=== PATIENT | male | born 1950 | race African-American/Black ===

== ENCOUNTER 2019-10-14 08:35 | Inpatient (IN) | payer MEDICARE, MEDICAID ==
[~2019-10-14] VITALS: Ht 170.2 cm; Wt 68.0 kg
[2019-10-14] VITALS (14 sets, daily range): BP systolic 105–156; BP diastolic 60–94
[~2019-10-14 08:35] MED LIST: ceFAZolin sod 1 GM in NS 55 ML IVPB ONE
[2019-10-14] MEDS ORDERED: AMLODIPINE BESY10 MG ORAL (09:44)
[2019-10-14] MEDS ORDERED: LISINOPRIL40 MG ORAL (09:44)
[2019-10-14] MEDS ORDERED: FLOMAX0.4 MG ORAL (09:44)
--- NOTE | 2019-10-14 12:12 | Pre-Procedure Note/Attestation ---
Pre-Procedure Note/Attestation Complete Prior to Procedure Planned Procedure: not applicable Procedure Narrative: open retropubic prostatectomy Indications for Procedure Pre-Operative Diagnosis: retention Attestation I attest that I discussed the nature of the procedure; its benefits; risks and complications; and alternatives (and the risks and benefits of such alternatives ), prior to the procedure, with the patient (or the patient's legal patient accounting representative). I attest that, if there was a reasonable possibility of needing a blood transfusion, the patient (or the patient's legal patient accounting representative) was given the [facility] standardized written summary, pursuant to the Bob Rosalee Blood Safety Act ([place] Health and Safety Code # 1645, as amended). I attest that I re-evaluated the patient just prior to the surgery and that there has been no change in the patient's H&P, except as documented below: Thong Baig MD October 14, 2019 12:12
--- NOTE | 2019-10-14 12:27 | Diagnostic Imaging Report ---
Indication: Cough Technique: One view of the chest Comparison: None Findings: Faint reticular opacities are seen at the right lung base. The pleural spaces are clear. No dense consolidation. Heart size is normal. Impression: Faint right basilar reticular opacities. These are nonspecific, could indicate chronic fibrotic changes versus early infiltrate. Correlate with clinical findings
[2019-10-14] MEDS ORDERED: Rocuronium Bromide 50mg/5ml Inj IV ONE (12:30)
[2019-10-14] MEDS ORDERED: ProvayBlue 5mg/ml 10ml amp INJ ONE (12:30)
[2019-10-14] MEDS ORDERED: LR 1000ml ONE (12:30)
[2019-10-14] MEDS ORDERED: NS Irrig 1000ml ONE (12:30)
[2019-10-14] MEDS ORDERED: Sterile Water Irrig 1000ml IRRIG ONE (12:30)
[2019-10-14] MEDS ORDERED: Sodium Chloride 10ml vial INJ ONE (12:45)
[2019-10-14] MEDS ORDERED: Lidocaine 1% MPF 10mg/ml 5ml ONE (12:45)
[2019-10-14] MEDS ORDERED: Dexamethasone 4mg/ml vial ONE (12:45)
[2019-10-14] MEDS ORDERED: Propofol 200mg/20ml IV ONE (12:45)
[2019-10-14] MEDS ORDERED: fentaNYL 100 mcg/2 mL IV ONE (12:47)
[2019-10-14] MEDS ORDERED: Metoclopramide 10mg/2ml Inj IVP PRN (13:00)
[2019-10-14] MEDS ORDERED: LORazepam Inj 2mg/ml 1ml IV PRN (13:00)
[2019-10-14] MEDS ORDERED: Midazolam 2mg/2ml Inj IVP PRN (13:00)
[2019-10-14] MEDS ORDERED: HYDROcodone/Acetamin 7.5/325 tab ORAL PRN (13:00)
[2019-10-14] MEDS ORDERED: Meperidine 25mg/0.5ml Inj (FOR RIGORS ONLY) IV PRN (13:00)
[2019-10-14] MEDS ORDERED: LR 1000ml 1,000 ML IVLG SCH (13:00)
[2019-10-14] MEDS ORDERED: DiphenhydrAMINE 50mg/ml Inj IVP PRN (13:00)
[2019-10-14] MEDS ORDERED: Atropine Sulfate 0.4mg/ml inj IVP PRN (13:00)
[2019-10-14] MEDS ORDERED: fentaNYL 100 mcg/2 mL IV PRN (13:00)
[2019-10-14] MEDS ORDERED: Acetaminophen (Non formulary) 100 ML IV ONE (13:00)
[2019-10-14] MEDS ORDERED: Ketorolac 30mg Inj IV PRN ×3 (13:00)
[2019-10-14] MEDS ORDERED: Labetalol 5mg/ml 20ml vial IV PRN (13:00)
[2019-10-14] MEDS ORDERED: oxyCODONE HCL/Acetaminophen 5/325mg ORAL PRN (13:00)
[2019-10-14] MEDS ORDERED: HYDROcodone/Acetamin 5/325 tab ORAL PRN (13:00)
[2019-10-14] MEDS ORDERED: Hydromorphone 0.5mg/0.5ml inj IVP PRN (13:00)
--- NOTE | 2019-10-14 13:03 | Brief Operative Note ---
Immediate Post Operative Note Operative Note Pre-op Diagnosis: retention Procedure: open radical prostatectomy Post-op Diagnosis: same Surgeon: Yo Baig Set Up And Charger: Edi Byrnes Anesthesia: general Specimen: yes Complications: none Condition: stable Fluids: 1000 Estimated Blood Loss: minimal Drains: CAM Implant(s) used?: No Thong Baig MD October 14, 2019 13:03
--- NOTE | 2019-10-14 13:04 | Anethesia Preoperative Eval ---
Anesthesia Pre-op PMH/ROS General Date of Evaluation: October 14, 2019 Time of Evaluation: 12:37 Anesthesiologist: Chance ASA Score: ASA 3 Mallampati Score Class I : Soft palate, uvula, fauces, pillars visible Class II: Soft palate, uvula, fauces visible Class III: Soft palate, base of uvula visible Class IV: Only hard plate visible Mallampati Classification: Class II Surgeon: Jovanni Diagnosis: Prostate CA Surgical Procedure: Prostatectomy Anesthesia History: none Family History: no anesthesia problems Allergies: Coded Allergies: No Known Allergies (Unverified , 10/14/19) Medications: see eMAR Patient NPO?: Yes NPO Date: October 13, 2019 NPO Time: 2200 Past Medical History Cardiovascular: Reports: HTN Gastrointestinal/Genitourinary: Reports: other - BPH, Prostate CA Neurologic/Psychiatric: Reports: depression/anxiety Anesthesia Pre-op Phys. Exam Physician Exam Last Vital Signs Date Time Temp Pulse Resp B/P (MAP) Pulse Ox O2 Delivery O2 Flow Rate FiO2 10/14/19 09:48 Room Air 10/14/19 09:39 97.5 80 18 150/92 (111) 99 Constitutional: NAD Neurologic: CN 2-12 intact Cardiovascular: RRR Respiratory: CTA Gastrointestinal: S/NT/ND Airway Exam Mallampati Score: Class II MO: full ROM: full Teeth: missing, intact Anesthesia Pre-op A/P Risk Assessment & Plan Assessment: ASA 3 Plan: GA, SED, GlideScope Status Change Before Surgery: No Pre-Antibiotics Dru mg Vancomycin, 80 mg Getamicin IV Given Within 1 Hr of Incision: Yes Time Given: 13:06 Arden Fletcher MD October 14, 2019 13:04
--- NOTE | 2019-10-14 13:23 | Immediate Post-Op Evaluation ---
Immediate Post-Op Evalulation Immediate Post-Op Evalulation Procedure: Open Prostaectomy Date of Evaluation: October 14, 2019 Time of Evaluation: 15:17 IV Fluids: 1000 LR Blood Products: 0 Estimated Blood Loss: 50 Urinary Output: 200 Blood Pressure Systolic: 156 Blood Pressure Diastolic: 94 Pulse Rate: 69 Respiratory Rate: 18 O2 Sat by Pulse Oximetry: 98 Temperature (Fahrenheit): 97 Pain Score (1-10): 2 Nausea: No Vomiting: No Complications 0 Patient Status: awake, reacts, patent, extubated, none Hydration Status: adequate Dru mg Vancomycin, 80 mg Getamicin IV Given Within 1 Hr of Incision: Yes Time Given: 13:06 Arden Fletcher MD October 14, 2019 13:22
[2019-10-14] MEDS ORDERED: Glycopyrrolate 0.2mg/ml 1ml Vial ONE (13:56)
[2019-10-14] MEDS ORDERED: Neostigmine 1mg/ml 10ml Inj ONE (13:56)
[2019-10-14] MEDS ORDERED: Ketorolac 30mg Inj ONE (14:52)
[2019-10-14 16:26] LABS: BASOPHILS % (AUTO) 0.5 % (0.0-2.0); EOSINOPHILS % (AUTO) 0.2 % (0.0-3.0); HEMATOCRIT 42.9 % (42.0-52.0); HEMOGLOBIN 12.9 G/DL (14.2-18.0); LYMPHOCYTES % (AUTO) 4.7 % (20.0-45.0); MEAN CORPUSCULAR VOLUME 92 FL (80-99); MONOCYTES % (AUTO) 1.1 % (1.0-10.0); NEUTROPHILS % (AUTO) 93.4 % (45.0-75.0); PLATELET COUNT 200 K/UL (150-450); RED BLOOD COUNT 4.65 M/UL (4.70-6.10); RED CELL DISTRIBUTION WIDTH 13.8 % (11.6-14.8); WHITE BLOOD COUNT 17.4 K/UL (4.8-10.8)
[2019-10-14 16:38] LABS: ANION GAP 11 mmol/L (5-15); BLOOD UREA NITROGEN 17 mg/dL (7-18); CALCIUM 8.7 MG/DL (8.5-10.1); CARBON DIOXIDE 24 MMOL/L (21-32); CHLORIDE 109 MMOL/L (98-107); CREATININE 1.1 MG/DL (0.55-1.30); SODIUM 144 MMOL/L (136-145)
[2019-10-14] MEDS: Docusate 100mg cap ORAL SCH (17:50)
[2019-10-14] MEDS: D5 1/2NS w/KCl 20mEq 1,000 ML IV SCH (18:00)
--- NOTE | 2019-10-14 19:30 | NUR ---
NURSE NOTES: Receive a report from LESLI Ibarra. Round is done. Pt is awake and alert. No acute distress noted but still noted pain. Pain medication will be provided as ordered. Surgical site dressing kept dry and clean. Spaulding is inserted state and is natural drained with dark urine with blood clots. CAM drainage is SS. On NPO except ice chips and po medication. On IV hydration. Call light within reach. Will continue to monitor.
--- NOTE | 2019-10-14 20:30 | NUR ---
NURSE NOTES: Explain for post-op education. Encourage for deep breathing and cough, I/S while awake including ROM L/E. On SCDs bilateral. Pt verbalizes understanding. Will continue to monitor.
[2019-10-14] MEDS ORDERED: ceFAZolin sod 2 GM in D5W 110 ML IV SCH (21:00)
[2019-10-14] MEDS: ceFAZolin 2gm/D5W 50ml Premix IV SCH (21:08)
[2019-10-15] VITALS: BP 135/82
[2019-10-15] MEDS: HYDROcodone/Acetamin 5/325 tab ORAL PRN ×2 (03:17→08:40)
[2019-10-15 04:00] VITALS: BP 121/72
[2019-10-15] MEDS: ceFAZolin 2gm/D5W 50ml Premix IV SCH (05:15)
[2019-10-15] MEDS: D5 1/2NS w/KCl 20mEq 1,000 ML IV SCH ×2 (05:15→17:01)
--- NOTE | 2019-10-15 06:00 | NUR ---
NURSE NOTES: Pt did not sleep overnight by his medical condition for many years. Inform pt of getting sleeping pill tonight if necessary. Pt shows appreciation for information he gets. Pain is tolerating 5/10 with pain medication. On NPO with hypo bowel sound. Will continue to monitor. Output Urine: [id number] (every 4 hrs): 420ml CAM: 80ml-SS
[2019-10-15 07:14] LABS: HEMATOCRIT 38.4 % (42.0-52.0); HEMOGLOBIN 12.9 G/DL (14.2-18.0); MEAN CORPUSCULAR VOLUME 86 FL (80-99); PLATELET COUNT 204 K/UL (150-450); RED BLOOD COUNT 4.47 M/UL (4.70-6.10); RED CELL DISTRIBUTION WIDTH 12.6 % (11.6-14.8); WHITE BLOOD COUNT 19.2 K/UL (4.8-10.8)
[2019-10-15 07:17] LABS: ANION GAP 8 mmol/L (5-15); BLOOD UREA NITROGEN 23 mg/dL (7-18); CALCIUM 9.1 MG/DL (8.5-10.1); CARBON DIOXIDE 25 MMOL/L (21-32); CHLORIDE 107 MMOL/L (98-107); CREATININE 1.3 MG/DL (0.55-1.30); POTASSIUM 4.7 MMOL/L (3.5-5.1); SODIUM 140 MMOL/L (136-145)
--- NOTE | 2019-10-15 07:45 | NUR ---
NURSE NOTES: Receive a report from LESLI Childs. Pt is awake and alert, able to needs known. No acute distress noted. Pt c/o pain. Pain medication will be provided as ordered. Surgical site dressing kept dry and clean. Spaulding intact draining dark urine with little blood clots. CAM drainage intact. Call light within reach. Will continue to monitor
[2019-10-15 08:00] VITALS: BP 122/73
--- NOTE | 2019-10-15 08:00 | NUR ---
HAND-OFF: Report given to LESLI Robbins. Round is done.
[2019-10-15] MEDS: Docusate 100mg cap ORAL SCH ×2 (08:39→18:34)
--- NOTE | 2019-10-15 10:08 | NUR ---
*-* INSURANCE *-* ALL AVAILABLE CLINICALS HAVE BEEN FAXED TO: ANABEL GRACIA:Marjorie F: [phone] Work Fax P: [phone] Work F: [phone]....REVIEW/CLINICAL
[2019-10-15 12:00] VITALS: BP 139/91
--- NOTE | 2019-10-15 13:20 | 48 Hour Post Anesthesia Eval ---
Post Anesthesia Evaluation Procedure: Open Prostatectomy Date of Evaluation: October 15, 2019 Time of Evaluation: 13:19 Blood Pressure Systolic: 138 0: 76 Pulse Rate: 68 Respiratory Rate: 20 Temperature (Fahrenheit): 97.6 O2 Sat by Pulse Oximetry: 98 Airway: patent Nausea: No Vomiting: No Pain Intensity: 2 Hydration Status: adequate Cardiopulmonary Status: stable Mental Status/LOC: patient returned to baseline Follow-up Care/Observations: n/a Post-Anesthesia Complications: none Follow-up care needed: N/A Aniceto Mann MD October 15, 2019 13:20
[2019-10-15 16:00] VITALS: BP 147/89
--- NOTE | 2019-10-15 16:34 | NUR ---
P.T Note: P.T evaluation completed and tx initiated. Please refer to P.T evaluation for full report.
--- NOTE | 2019-10-15 17:44 | Consultation ---
DATE OF CONSULTATION: 10/15/2019 INTERNAL MEDICINE CONSULTATION CONSULTING PHYSICIAN: Peter Pedro MD. HISTORY OF PRESENT ILLNESS: This is a 69-year-old male who is postop day #1 after urologic surgery. Patient's surgery was uncomplicated and is seen on the medical unit. He has a history of prostate carcinoma and he underwent open radical prostatectomy by Dr. Thong Baig . The estimated blood loss was minimal and a 1000 mL of fluid was used. PAST MEDICAL HISTORY: Notable for hypertension, prostate CA. HOME MEDICATIONS: Include ferrous sulfate, lisinopril, amlodipine, Flomax. ALLERGIES: None reported. PREVIOUS SURGERIES: None reported. REVIEW OF SYSTEMS: Denies any headaches, hematemesis, melena, hematochezia, night sweats, or weight loss. PHYSICAL EXAMINATION: GENERAL: Reveals a 69-year-old male. HEENT: Unremarkable. LUNGS: Clear breath sounds bilaterally. ABDOMEN: Soft. NEUROLOGIC: Nonfocal. LABORATORY TESTING: At this time is reviewed. Preoperative laboratories were unremarkable. Postoperatively, patient has a white count 9000, hemoglobin 12.9. Chemistries are normal. IMPRESSION: 1. Postop day #1 status post open prostatectomy. 2. Hypertension. DISCUSSION: Patient's vital signs were reviewed. Currently, blood pressure is 120/70. I will resume his home medications. Continue Spaulding. Advance diet as tolerated. We will follow carefully. Peter Pedro M.D. DR: PRANAY JOB#: [id number] CC:
--- NOTE | 2019-10-15 19:26 | NUR ---
NURSE NOTES: Received report from Brant BALLESTEROS. Rounding is done. Patient is a/ox4, and able to known his needs. Denied pain or any distress at this time. Iv site is intact and iv fluid is running. Spaulding is draining to gravity. Herminio is in place and draining. Dressing on Lt lower Q is c/d/i. Bed is on alarm, locked, lowest position. Call light within reach. Will continue to monitor.
[2019-10-15 20:00] VITALS: BP 133/85
[2019-10-16] VITALS: BP 141/80
[2019-10-16 04:00] VITALS: BP 155/92
[2019-10-16] MEDS: D5 1/2NS w/KCl 20mEq 1,000 ML IV SCH ×3 (04:54→10:00)
[2019-10-16 06:40] LABS: BASOPHILS % (AUTO) 0.8 % (0.0-2.0); EOSINOPHILS % (AUTO) 0.7 % (0.0-3.0); HEMATOCRIT 35.3 % (42.0-52.0); HEMOGLOBIN 11.8 G/DL (14.2-18.0); LYMPHOCYTES % (AUTO) 12.7 % (20.0-45.0); MEAN CORPUSCULAR VOLUME 85 FL (80-99); MONOCYTES % (AUTO) 8.6 % (1.0-10.0); NEUTROPHILS % (AUTO) 77.1 % (45.0-75.0); PLATELET COUNT 173 K/UL (150-450); RED BLOOD COUNT 4.13 M/UL (4.70-6.10); RED CELL DISTRIBUTION WIDTH 12.3 % (11.6-14.8); WHITE BLOOD COUNT 10.1 K/UL (4.8-10.8)
--- NOTE | 2019-10-16 07:26 | NUR ---
NURSE NOTES: Report received from Rashad BALLESTEROS, rounds made. Patient resting in semi-fowlers position in bed, AOx4, calm. No distress on RA. Denies NV, pain, SOB. IVF (D5 1/2 NS +20 KCL at 100 ml/hr) to left hand, site asymptomatic. Abdomen dressing CDI. CAM (left), with serosanguineous output noted to bulb. Bilateral SCDs off, encouraged IS and ankle rotation. Tolerating clear liquid diet. Call light in reach, bed in lowest position, will continue to monitor.
--- NOTE | 2019-10-16 07:30 | NUR ---
HAND-OFF: Report given to Geraldine BALLESTEROS. Patient in stable condition.
[2019-10-16 07:58] LABS: ANION GAP 9 mmol/L (5-15); BLOOD UREA NITROGEN 13 mg/dL (7-18); CALCIUM 9.4 MG/DL (8.5-10.1); CARBON DIOXIDE 26 MMOL/L (21-32); CHLORIDE 107 MMOL/L (98-107); CREATININE 1.1 MG/DL (0.55-1.30); POTASSIUM 4.2 MMOL/L (3.5-5.1); SODIUM 142 MMOL/L (136-145)
[2019-10-16 08:00] VITALS: BP 151/98
[2019-10-16] MEDS: Docusate 100mg cap ORAL SCH (08:52)
--- NOTE | 2019-10-16 10:22 | Pulmonology Progress Note ---
Subjective Interval Events: POD #2; doing well Constitutional: Reports: no symptoms HEENT: Repors: no symptoms Respiratory: Reports: no symptoms Cardiovascular: Reports: no symptoms Gastrointestinal/Abdominal: Reports: no symptoms Genitourinary: Reports: no symptoms Allergies: Coded Allergies: No Known Allergies (Unverified , 10/14/19) Objective Last 24 Hour Vital Signs Date Time Temp Pulse Resp B/P (MAP) Pulse Ox O2 Delivery O2 Flow Rate FiO2 10/16/19 08:00 98.7 102 18 151/98 (115) 95 10/16/19 04:00 99.5 98 18 155/92 (113) 94 10/16/19 00:00 99.1 92 17 141/80 (100) 95 10/15/19 21:00 Room Air 10/15/19 20:00 98.8 90 18 133/85 (101) 95 10/15/19 17:32 98.6 10/15/19 16:00 98.6 89 18 147/89 (108) 95 10/15/19 13:20 68 20 98 10/15/19 12:00 98.2 98 18 139/91 (107) 94 Intake and Output 10/15/19 10/16/19 19:02 07:02 Intake Total 600 ml Output Total 680 ml 2530 ml Balance -680 ml -1930 ml IV Total 600 ml Output Urine Total 600 ml 2500 ml Drainage Total 80 ml 30 ml General Appearance: no acute distress HEENT: normocephalic Respiratory/Chest: chest wall non-tender, lungs clear Cardiovascular: normal peripheral pulses, normal rate Abdomen: normal bowel sounds Microbiology Date/Time Source Procedure Growth Status 10/14/19 09:30 Nasal Nares MRSA Culture - Final NO METHICILLIN RESISTANT STAPH AUREUS... Complete Laboratory Tests 10/16/19 05:25: White Blood Count 10.1, Red Blood Count 4.13L, Hemoglobin 11.8L, Hematocrit 35.3L, Mean Corpuscular Volume 85, Mean Corpuscular Hemoglobin 28.5, Mean Corpuscular Hemoglobin Concent 33.3, Red Cell Distribution Width 12.3, Platelet Count 173, Mean Platelet Volume 7.3, Neutrophils (%) (Auto) 77.1H, Lymphocytes ( %) (Auto) 12.7L, Monocytes (%) (Auto) 8.6, Eosinophils (%) (Auto) 0.7, Basophils (%) (Auto) 0.8, Sodium Level 142, Potassium Level 4.2, Chloride Level 107, Carbon Dioxide Level 26, Anion Gap 9, Blood Urea Nitrogen 13, Creatinine 1.1, Estimat Glomerular Filtration Rate > 60, Glucose Level 112H, Calcium Level 9.4 Current Medications Medications (Trade) Dose Ordered Sig/Braulio Route PRN Reason Start Time Stop Time Status Last Admin Dose Admin Acetaminophen (Tylenol) 650 mg Q4H PRN ORAL FEVER 10/14/19 13:00 11/13/19 12:59 Acetaminophen (Tylenol) 650 mg Q6H PRN ORAL Mild Pain (Pain Scale 1-3) 10/14/19 13:00 11/13/19 12:59 Acetaminophen/ Hydrocodone Bitart ([place] 5/325) 1 tab Q4H PRN ORAL Moderate Pain (Pain Scale 4-6) 10/14/19 13:00 10/21/19 12:59 10/15/19 08:40 Al Hydroxide/Mg Hydroxide (Mylanta) 15 ml Q6H PRN ORAL DYSPEPSIA 10/14/19 13:00 11/13/19 12:59 Dextrose/ Electrolytes 1,000 ml @ 100 mls/hr Q10H IV 10/14/19 18:00 11/13/19 17:59 10/16/19 04:54 Docusate Sodium (Colace) 100 mg TWICE A DAY ORAL 10/14/19 18:00 11/13/19 17:59 10/16/19 08:52 Hydromorphone HCl (Dilaudid) 2 mg Q3H PRN IVP pain score 7-10 10/14/19 13:00 10/21/19 12:59 10/16/19 08:52 Ketorolac Tromethamine (Toradol 30mg) 15 mg Q6H PRN IV breakthrough pain 10/14/19 13:00 10/19/19 12:59 10/14/19 20:36 Ondansetron HCl (Zofran) 4 mg Q6H PRN IVP Nausea & Vomiting 10/14/19 13:00 11/13/19 12:59 Temazepam (RestoriL) 7.5 mg DAILYPRN PRN ORAL Insomnia 10/14/19 13:00 10/21/19 12:59 10/15/19 22:10 Assessment/Plan Assessment/Plan IMPRESSION: 1. Postop day #2 status post open prostatectomy. 2. Hypertension. DISCUSSION: Patient's vital signs were reviewed. Currently, blood pressure is 110/70. I will resume his home medications. Continue Spaulding. Advance diet as tolerated. Attach leg bag Dc CAM DC home Jacqui Wood Omar Syed MD October 16, 2019 10:22
[2019-10-16] MEDS ORDERED: FLOMAX0.4 MG ORAL (10:27)
[2019-10-16] MEDS ORDERED: LISINOPRIL40 MG ORAL (10:27)
[2019-10-16] MEDS ORDERED: LEVAQUIN500 MG ORAL (10:27)
[2019-10-16] MEDS ORDERED: NORCO 5-325 TA1 EAC1 ORAL (10:27)
[2019-10-16] MEDS ORDERED: COLACE100 MG ORAL (10:27)
[2019-10-16 12:00] VITALS: BP 135/72
--- NOTE | 2019-10-16 12:04 | NUR ---
DISCHARGE PLANNED: PATIENT PREVIOUSLY IN SERVICE WITH [facility] FAXED TO F: [phone] T: [phone]~~~ SPOKE TO CORINE TO CONFIRM PATIENT SAFE TO DISCHARGE HOME
--- NOTE | 2019-10-16 14:08 | Consultation ---
History of Present Illness General Date patient seen: October 16, 2019 Present Illness HPI This is a 69-year-old male who is status post open radical prostatectomy for prostate carcinoma that was admitted postoperatively for evaluation care and management. In postop patient was recovering but did have significant leukocytosis, abnormal labs, mild nominal distention. Surgery was called to evaluate and assist with care. Patient seen, patient evaluated, chart reviewed. : Plan for discharge today. Ensure patient safety prior to discharge. Patient states he is well. States that yesterday he had a significant back pain some difficulty walking but this morning was able to do a little bit better. States he feels comfortable and ready to go home. Labs improving. Allergies: Coded Allergies: No Known Allergies (Unverified , 10/14/19) COVID-19 Screening Contact w/high risk pt: No Recent Travel to affected area: No Experienced COVID-19 symptoms?: No Medication History Scheduled Docusate Sodium* (Colace*), 100 MG ORAL TWICE A DAY Levofloxacin* (Levaquin*), 500 MG ORAL DAILY Lisinopril* (Lisinopril*), 40 MG ORAL DAILY Tamsulosin HCl (Flomax), 0.4 MG ORAL DAILY Scheduled PRN Hydrocodone Bit/Acetaminophen 5-325* (Andrew 5-325 Tablet*), 1 TAB ORAL Q4H PRN Discontinued Medications Amlodipine Besylate* (Amlodipine Besylate*), 10 MG ORAL DAILY, (Reported) Discontinued Reason: MD discontinued med Patient History History Provided By: Patient, Medical Record, PMD Healthcare decision maker Resuscitation status Advanced Directive on File Past Medical/Surgical History Past Medical/Surgical History: (1) Prostate CA Review of Systems Review of Symptoms General ROS: no weight loss or fever Psychological ROS: no depression or mood changes, no memory loss Ophthalmic ROS: no visual changes or eye irritation ENT ROS: no nasal congestion, hearing loss, dizziness Allergy and Immunology ROS: no allergic symptoms or urticaria Hematological and Lymphatic ROS: no swollen glands, unusual bleeding or bruising Endocrine ROS: no polyuria, polydipsia, weight changes, temperature intolerance Respiratory ROS: no cough, shortness of breath, or wheezing Cardiovascular ROS: no chest pain or dyspnea on exertion Gastrointestinal ROS: denies abdominal pain, bright red blood in stool. Musculoskeletal ROS: no myalgias or arthralgias Neurological ROS: no TIA or stroke symptoms Dermatological ROS: no new or changing skin lesions, rashes or pruritis Physical Exam Physical Exam General appearance: alert, cooperative, no distress, appears stated age Head: Normocephalic, without obvious abnormality, atraumatic Eyes: conjunctivae/corneas clear. PERRL, EOM's intact. Fundi benign Throat: Lips, mucosa, and tongue normal. Teeth and gums normal Neck: supple, symmetrical, trachea midline, no adenopathy, thyroid: not enlarged, symmetric, no tenderness/mass/nodules, no carotid bruit and no JVD Lungs: clear to auscultation bilaterally Heart: regular rate and rhythm, S1, S2 normal, no murmur, click, rub or gallop Abdomen: soft, non-tender. Bowel sounds normal. No masses, no organomegaly midline incision clean dry intact drain removed Extremities: extremities normal, atraumatic, no cyanosis or edema Pulses: 2+ and symmetric Skin: Skin color, texture, turgor normal. No rashes or lesions Neurologic: Grossly normal Last 24 Hour Vital Signs Date Time Temp Pulse Resp B/P (MAP) Pulse Ox O2 Delivery O2 Flow Rate FiO2 10/16/19 08:00 98.7 102 18 151/98 (115) 95 10/16/19 04:00 99.5 98 18 155/92 (113) 94 10/16/19 00:00 99.1 92 17 141/80 (100) 95 10/15/19 21:00 Room Air 10/15/19 20:00 98.8 90 18 133/85 (101) 95 10/15/19 17:32 98.6 10/15/19 16:00 98.6 89 18 147/89 (108) 95 Intake and Output 10/15/19 10/16/19 19:00 07:00 Intake Total 600 ml Output Total 680 ml 2530 ml Balance -680 ml -1930 ml IV Total 600 ml Output Urine Total 600 ml 2500 ml Drainage Total 80 ml 30 ml Laboratory Tests Test 10/16/19 05:25 White Blood Count 10.1 K/UL (4.8-10.8) Red Blood Count 4.13 M/UL (4.70-6.10) L Hemoglobin 11.8 G/DL (14.2-18.0) L Hematocrit 35.3 % (42.0-52.0) L Mean Corpuscular Volume 85 FL (80-99) Mean Corpuscular Hemoglobin 28.5 PG (27.0-31.0) Mean Corpuscular Hemoglobin Concent 33.3 G/DL (32.0-36.0) Red Cell Distribution Width 12.3 % (11.6-14.8) Platelet Count 173 K/UL (150-450) Mean Platelet Volume 7.3 FL (6.5-10.1) Neutrophils (%) (Auto) 77.1 % (45.0-75.0) H Lymphocytes (%) (Auto) 12.7 % (20.0-45.0) L Monocytes (%) (Auto) 8.6 % (1.0-10.0) Eosinophils (%) (Auto) 0.7 % (0.0-3.0) Basophils (%) (Auto) 0.8 % (0.0-2.0) Sodium Level 142 MMOL/L (136-145) Potassium Level 4.2 MMOL/L (3.5-5.1) Chloride Level 107 MMOL/L (98-107) Carbon Dioxide Level 26 MMOL/L (21-32) Anion Gap 9 mmol/L (5-15) Blood Urea Nitrogen 13 mg/dL (7-18) Creatinine 1.1 MG/DL (0.55-1.30) Estimat Glomerular Filtration Rate > 60 mL/min (>60) Glucose Level 112 MG/DL (74-106) H Calcium Level 9.4 MG/DL (8.5-10.1) Height (Feet): 5 Height (Inches): 7.00 Weight (Pounds): 150 Medications Current Medications Medications (Trade) Dose Ordered Sig/Braulio Route PRN Reason Start Time Stop Time Status Last Admin Dose Admin Acetaminophen (Tylenol) 650 mg Q4H PRN ORAL FEVER 10/14/19 13:00 11/13/19 12:59 Acetaminophen (Tylenol) 650 mg Q6H PRN ORAL Mild Pain (Pain Scale 1-3) 10/14/19 13:00 11/13/19 12:59 Acetaminophen/ Hydrocodone Bitart ([place] 5/325) 1 tab Q4H PRN ORAL Moderate Pain (Pain Scale 4-6) 10/14/19 13:00 10/21/19 12:59 10/15/19 08:40 Al Hydroxide/Mg Hydroxide (Mylanta) 15 ml Q6H PRN ORAL DYSPEPSIA 10/14/19 13:00 11/13/19 12:59 Docusate Sodium (Colace) 100 mg TWICE A DAY ORAL 10/14/19 18:00 11/13/19 17:59 10/16/19 08:52 Hydromorphone HCl (Dilaudid) 2 mg Q3H PRN IVP pain score 7-10 10/14/19 13:00 10/21/19 12:59 10/16/19 08:52 Ketorolac Tromethamine (Toradol 30mg) 15 mg Q6H PRN IV breakthrough pain 10/14/19 13:00 10/19/19 12:59 10/14/19 20:36 Levofloxacin (Levaquin) 500 mg DAILY ORAL 10/17/19 09:00 10/24/19 08:59 Ondansetron HCl (Zofran) 4 mg Q6H PRN IVP Nausea & Vomiting 10/14/19 13:00 11/13/19 12:59 Temazepam (RestoriL) 7.5 mg DAILYPRN PRN ORAL Insomnia 10/14/19 13:00 10/21/19 12:59 10/15/19 22:10 Assessment/Plan Problem List: (1) Prostate CA Assessment & Plan: 61-year-old male with prostate cancer status post radical prostatectomy by Dr. Jacinto Postop day 2 currently. Patient planning for discharge and was asked to evaluate prior to discharge for safety. Patient having abdominal discomfort with mild distention. Some discomfort around the drain which is been putting out much. Drain was removed at the bedside and within an hour patient slightly improved. Labs are improving. Leukocytosis from prior is resolved. No signs of acute active infection. Recovery seemingly well. Imaging reviewed labs reviewed patient examined appropriate for postoperative. Patient safe for discharge. Plan for discharge today. Dressings on drain site instructed for patient until dry. Okay to shower. No submerging in water. Ambulate out of bed. Rx is written. Spaulding to stay until follow-up for removal in the office. Thank you ICD Codes: C61 - Malignant neoplasm of prostate SNOMED: [id number] QueMariusz perezya October 16, 2019 14:08
[2019-10-16] MEDS: HYDROcodone/Acetamin 5/325 tab ORAL PRN (14:18)
--- NOTE | 2019-10-16 15:00 | NUR ---
NURSE NOTES: CAM discontinued by Dr. Baig at 1015. Abdominal dressing changed with Dr. Baig, esther noted, CDI, no redness or swelling. Remains CDI. Will continue to monitor.
--- NOTE | 2019-10-16 15:45 | NUR ---
*-* INSURANCE *-* UPDATED CLINICALS HAVE BEEN FAXED TO: ANABEL ANTUNEZ:Marjorie F: [phone] Work Fax P: [phone] Work F: [phone]....REVIEW/CLINICAL
--- NOTE | 2019-10-16 15:53 | NUR ---
CASE MANAGEMENT: INITIAL REVIEW 69YR OLD FROM HOME, HERE FOR OPEN SURGERY CC: RETENTION SI:URINE RETENTION 97.5 80 18 150/92 99% ON RA WBC 17.4 BG 190 IS:IN SURGERY NOW IV ANCEF X2 BAGS IV DEMEROL Q5M/PRN (SHIVERING) IV DILAUDID X4 DOSES \:3E MED SURG UNIT DCP: HOME STABLE CASE MANAGEMENT:REVIEW 10/15/19 SI:S/P OPEN RADICAL RETROPUBIC PROSTATECTOMY URINE RETENTION 98.2 98 18 139/91 94% ON RA WBC 19.2 BG 140 IS:IV DILAUDID Q3HR/PRN NORCO PO Q4HR/PRN COLACE PO BID \:3E MED SURG UNIT DCP: HOME STABLE PLAN: IF STABLE IN AM; DC HOME
[2019-10-16 16:00] VITALS: BP 137/88
--- NOTE | 2019-10-16 16:50 | NUR ---
NURSE NOTES: Discharge instructions reviewed with patient, verbalized understanding. Prescriptions filled at [facility] pharmacy and delivered to patient. All belongings sent home with patient. Provided FC supplies: drainage bag, basin, canister, leg bag x2. Instructed patient on how to apply and connect leg bag and switch to drainage bag at bedtime and how to open/close to empty, verbalized understanding. IV heplock discontinued, no active bleeding. Patient ambulated down to lobby with RN, in stable condition. Discharged at 1650.
[2019-10-17] MEDS ORDERED: Levofloxacin 500mg tab ORAL SCH (09:00)
--- NOTE | 2019-10-17 13:23 | Discharge Summary ---
Discharge Summary Hospital Course Date of Admission October 14, 2019 at 08:36 Date of Discharge October 16, 2019 at 16:50 Admitting Diagnosis Prostate cancer Reason for Hospitalization: elective surgery HPI 69-year-old male with past medical history of hypertension, prostate cancer , admitted for elective surgery for open radical prostatectomy Consultations Dr Mayela Frazier - general surgeon Procedures s/p 10/14/[address] Baig open radical prostatectomy Hospital Course patient admitted for elective surgery patient undergone open radical prostatectomy on 10/13 course of recovery was uneventful pain management was addressed, pain was controlled initially on IV fluids and perioperative antibiotics postop wound care provided hemodynamic status closely monitored, remained stable blood pressure controlled with current regimen patient started on diet and was advanced as tolerated patient ambulated without difficulties leukocytosis resolved ; no signs of active infection CAM drain was removed at the bedside by general surgeon due to patient's complaint of abdominal discomfort within an hour patient improved patient was instructed to keep dressing at the drain site until dry patient was cleared to shower, but no submersion in water Spaulding bag was changed to the leg bag to keep the catheter until seen in the surgeon office patient to continue with antibiotics and bowel regimen /prescription provided patient clinically stabilized and was ready for discharge home outpatient follow-up with urologist FINAL DIAGNOSES Prostate cancer s/p open radical prostatectomy HTN Discharge Medications New Medications: Levofloxacin* (Levaquin*) 500 Mg Tablet 500 MG ORAL DAILY for 7 Days, #7 TAB Docusate Sodium* (Colace*) 100 Mg Capsule 100 MG ORAL TWICE A DAY for 10 Days, #20 CAP Hydrocodone Bit/Acetaminophen 5-325* (Kula 5-325 Tablet*) 1 Each Tablet 1 TAB ORAL Q4H PRN for 7 Days, #30 TAB Continued Medications: Lisinopril* (Lisinopril*) 40 Mg Tablet 40 MG ORAL DAILY for htn for 30 Days, #30 TAB (This prescription has been renewed) Tamsulosin HCl (Flomax) 0.4 Mg Cap.er.24h 0.4 MG ORAL DAILY for prostate for 30 Days, #30 CAP (This prescription has been renewed) Discontinued Medications: Amlodipine Besylate* (Amlodipine Besylate*) 10 Mg Tablet 10 MG ORAL DAILY for htn, TAB Discharge Condition Upon Discharge: stable Discharge Vital Signs Last Vital Signs Date Time Temp Pulse Resp B/P (MAP) Pulse Ox O2 Delivery O2 Flow Rate FiO2 10/16/19 16:00 99.0 93 18 137/88 (104) 96 10/16/19 09:00 Room Air 10/14/19 21:00 2.0 Discharge Disposition Patient was discharged home Discharge Instructions Discharge Instructions Special Instructions I have been assigned to complete a D/C Summary on this account. I was not involved in the patient management Nanette Rivas NP October 17, 2019 13:22
--- NOTE | 2019-10-19 13:31 | NUR ---
*-* INSURANCE *-* DISCHARGE SUMMARY HAS BEEN FAXED TO: [facility]:Marjorie F: [phone] Work Fax P: [phone] Work F: [phone]....REVIEW/CLINICAL
--- NOTE | 2019-10-20 15:44 | Operative Note - Dictated ---
DATE OF OPERATION: 10/14/2019 PREOPERATIVE DIAGNOSIS: Prostate cancer. POSTOPERATIVE DIAGNOSIS: Prostate cancer. OPERATION: Open retropubic prostatectomy with bilateral pelvic lymph node dissection. CHANGE ADVISOR: Thong Baig MD IN STORE MARKETING ASSOCIATE: Edi Byrnes MD ANESTHESIA: General. FINDINGS: Enlarged prostate. INDICATIONS FOR SURGERY: The patient was diagnosed with prostate cancer but at the same time he had a large prostate and urinary retention and required Spaulding catheter. Treatment options were explained to him in great length including all potential complications. Considering his large size of the prostate and diagnosed with prostate cancer, decision was made to proceed with open retropubic prostatectomy. All potential complications of surgery were explained. He signed a consent. DESCRIPTION OF OPERATION: He was brought to the operating room, placed in supine position, prepped and draped in standard fashion. Under general anesthesia, midline laparotomy incision was made. Retropubic space was opened and the prostate was mobilized on both sides. The dorsal venous complex was transected between hemoclips as well as [id number] 0 Vicryl sutures exposing which was transected at the apex, prostate was then retracted and slowly removed preserving the neurovascular bundles . After that, bladder neck sparing technique was used. The prostate was from the bladder using sharp and blunt dissection including . Interrupted [id number] 2-0 Vicryl sutures were used to narrow the bladder neck and the bladder neck was then reanastomosed 20-Kittitian Spaulding catheter using interrupted 2-0 Vicryl sutures. Bladder copiously irrigated. No evidence of leak. Estimated blood loss was approximately 50 mL. Bladder mucosa was repaired with 4-0 chromic sutures. A CAM drain was placed into the wound. Prostate was removed and sent for pathologic examination. The wound was copiously irrigated. Sponge count, instrument count was correct and closed with two layers, 0 Vicryl for the fascia and esther for the skin. The patient tolerated the procedure well transferred to the recovery room in stable condition. Thong Baig M.D. DR: Julienne JOB#: [id number] CC:
== END 2019-10-16 16:50 | disposition home or self-care (01) | DRG 480 ==
LOC: SDSOVERFLO 08:36 → 3E 16:50
PROC: 0VT00ZZ Resection of Prostate, Open Approach (ICD-10-PCS; principal; 2019-10-14 11:00)
DX: C61 Malignant neoplasm of prostate (principal); N40.1 Benign prostatic hyperplasia with lower urinary tract symptoms; I10 Essential (primary) hypertension; R33.8 Other retention of urine; F41.8 Other specified anxiety disorders
CPT/HCPCS: 36415; 71045; 80048; 85007; 85025; 86850; 86900; 86901; 87081; 94003; 94150; J2180; J2405; J2710